=== PATIENT | female | born 1945 | race African-American/Black ===

== ENCOUNTER 2017-12-18 21:13 | Emergency (ER) | payer MEDICARE ==
[~2017-12-18] VITALS: Ht 144.8 cm; Wt 71.0 kg
[~2017-12-18 21:13] MED LIST: (None)10 MG OR; AMLODIPINE; AMLODIPINE5 MG PO; ANTIVERT25 MG PO; ASPIRIN LOW DOS81 M2 PO; CARAFATE; CARAFATE1 GM PO; CEFEPIME1 GM IV; CEPHALEXIN500 M1; CEPHALEXIN500 MG PO; CLOPIDOGREL75 MG PO; DIFLUCAN100 MG PO; DIOVAN160 MG PO; DIOVAN40 MG PO; DULCOLAX10 MG RE; FERROUS SULFAT325 MG PO; FLORASTOR250 M1 PO; FUROSEMIDE40 MG PO; GABAPENTIN300 MG PO; GLIPIZIDE ER5 MG PO; GLIPIZIDE5 M2 PO; GLIPIZIDE5 MG PO; GLUCOTROL5 MG PO; HEPARIN LOC IV; IBUPROFEN800 MG OR; IMDUR30 MG PO; IRON325 M1 PO; LASIX 20 MG20 MG/TAB PO; LEXAPRO20 MG PO; LIPITOR40 M1; LIPITOR40 MG PO; LORTAB 7.5 OR; LYRICA100 MG PO; MARINOL2.5 MG PO; MECLIZINE25 MG PO; METOCLOPRAM5 MG PO; MOTRIN200 MG PO; MULTI VIT PO; NAPROSYN375 MG OR; NEURONTIN300 MG PO; NITROGLYCRN TL; NITROSTAT0.4 MG SL; NORCO1 TA2 PO; NORVASC PO; NORVASC2.5 MG PO; NYSTATIN100000 M4 TOP; PEPCID20 MG PO; PLAVIX75 MG PO; PRILOSEC20 MG PO; PRILOSEC20 MG/CAP PO; PRO STAT PO; SILVADENE1 % TOP; TOPROL XL PO; TRAMADL/APAP PO; TRAMADOL HCL50 MG PO; TRAMADOL HYDROC50 MG PO; ULTRACET 37.5-31 TAB PO; VIIBRYD20 MG PO; ZESTRIL/PRIN5 MG/TA1 PO; [UNRECOGNIZED DRUG - CODE] TOP; [UNRECOGNIZED DRUG - OTHER]; [UNRECOGNIZED DRUG - OTHER] PO
[2017-12-18] MEDS ORDERED: METFORMIN500 M1 PO (21:31)
[2017-12-18] MEDS ORDERED: NAPROSYN500 MG PO (23:49)
[2017-12-19 00:07] VITALS: BP 158/83
== END 2017-12-19 00:07 | disposition home or self-care (01) ==
LOC: ED 21:13
PROC: 0HQ1XZZ Repair Face Skin, External Approach (ICD-10-PCS; principal; 2017-12-18)
DX: S09.90XA Unspecified injury of head, initial encounter (principal); S01.81XA Laceration without foreign body of other part of head, initial encounter; R22.0 Localized swelling, mass and lump, head; W01.0XXA Fall on same level from slipping, tripping and stumbling without subsequent striking against object, initial encounter; Y92.000 Kitchen of unspecified non-institutional (private) residence as the place of occurrence of the external cause

== ENCOUNTER 2018-05-18 10:19 | Emergency (ER) | payer MEDICARE ==
[~2018-05-18] VITALS: Ht 144.8 cm; Wt 100.0 kg
[~2018-05-18 10:19] MED LIST changes: +METFORMIN500 M1 PO; +NAPROSYN500 MG PO
[2018-05-18] MEDS ORDERED: NAPROSYN500 MG PO (11:16)
[2018-05-18 11:40] VITALS: BP 139/57
== END 2018-05-18 11:40 | disposition home or self-care (01) ==
LOC: ED 10:19
DX: M19.031 Primary osteoarthritis, right wrist (principal); M25.531 Pain in right wrist

== ENCOUNTER 2018-09-04 19:51 | Emergency (ER) | payer MEDICARE ==
[~2018-09-04] VITALS: Ht 144.8 cm; Wt 69.5 kg
[2018-09-04 21:17] VITALS: BP 153/65
[2018-09-04] MEDS ORDERED: AMOXICILLIN500 MG PO (21:28)
== END 2018-09-04 21:46 | disposition home or self-care (01) ==
LOC: ED 19:51
DX: I10 Essential (primary) hypertension (principal); J02.9 Acute pharyngitis, unspecified; E11.9 Type 2 diabetes mellitus without complications; I25.10 Atherosclerotic heart disease of native coronary artery without angina pectoris

== ENCOUNTER → 2018-09-07 | Outpatient (REF) | payer MEDICARE ==
[~2018-09-07] MED LIST changes: +AMOXICILLIN500 MG PO
== END | disposition home or self-care (01) ==
LOC: DI 13:43
PROVIDERS: ATTEND Internal Medicine Interventional Cardiology
DX: I73.9 Peripheral vascular disease, unspecified (principal)

== ENCOUNTER 2020-06-28 04:34 | Emergency (ER) | payer MEDICARE ==
[~2020-06-28] VITALS: Ht 144.8 cm; Wt 76.4 kg
[2020-06-28] MEDS ORDERED: XARELTO10 MG PO (05:01)
[2020-06-28] MEDS ORDERED: LOSARTAN POTASS50 MG PO (05:02)
[2020-06-28] MEDS ORDERED: JANUVIA50 MG PO (05:03)
[2020-06-28] MEDS ORDERED: OXYBUTYNIN CHLOR5 M1 PO (05:03)
[2020-06-28] MEDS ORDERED: VITAMIN D32000 UNI2 PO (05:04)
[2020-06-28 05:15] VITALS: BP 142/81
== END 2020-06-28 05:15 | disposition home or self-care (01) ==
LOC: ED 04:34
PROC: 09C37ZZ Extirpation of Matter from Right External Auditory Canal, Via Natural or Artificial Opening (ICD-10-PCS; principal; 2020-06-28)
DX: T16.1XXA Foreign body in right ear, initial encounter (principal); E11.9 Type 2 diabetes mellitus without complications; I10 Essential (primary) hypertension; I25.10 Atherosclerotic heart disease of native coronary artery without angina pectoris; X58.XXXA Exposure to other specified factors, initial encounter; Z98.84 Bariatric surgery status; Z95.1 Presence of aortocoronary bypass graft; Z95.5 Presence of coronary angioplasty implant and graft; Z79.84 Long term (current) use of oral hypoglycemic drugs

== ENCOUNTER 2020-07-03 12:33 | Emergency (ER) | payer MEDICARE ==
[~2020-07-03] VITALS: Ht 144.8 cm; Wt 76.0 kg
[~2020-07-03 12:33] MED LIST changes: +JANUVIA50 MG PO; +LOSARTAN POTASS50 MG PO; +OXYBUTYNIN CHLOR5 M1 PO; +VITAMIN D32000 UNI2 PO; +XARELTO10 MG PO
[2020-07-03] MEDS ORDERED: TRAMADOL HYDROC50 MG PO (14:35)
[2020-07-03] MEDS ORDERED: NITROSTAT0.4 MG SL (14:36)
[2020-07-03] MEDS ORDERED: ASPIRIN LOW DOS81 M1 PO (14:36)
[2020-07-03] MEDS ORDERED: FLOVENT DI50 MCG/BLI IN (14:37)
[2020-07-03] MEDS ORDERED: VOLTAREN1%GEL TOP (15:47)
[2020-07-03 16:15] VITALS: BP 144/80
== END 2020-07-03 16:15 | disposition short-term general hospital (02) ==
LOC: ED 12:33
DX: S09.90XA Unspecified injury of head, initial encounter (principal); M87.9 Osteonecrosis, unspecified; I10 Essential (primary) hypertension; E11.9 Type 2 diabetes mellitus without complications; I25.10 Atherosclerotic heart disease of native coronary artery without angina pectoris; W01.0XXA Fall on same level from slipping, tripping and stumbling without subsequent striking against object, initial encounter; Y92.009 Unspecified place in unspecified non-institutional (private) residence as the place of occurrence of the external cause; Z95.1 Presence of aortocoronary bypass graft; Z95.5 Presence of coronary angioplasty implant and graft; Z98.84 Bariatric surgery status; Z79.01 Long term (current) use of anticoagulants

== ENCOUNTER 2020-08-11 12:19 | Emergency (ER) | payer MEDICARE ==
[~2020-08-11] VITALS: Ht 144.8 cm; Wt 79.0 kg
[~2020-08-11 12:19] MED LIST changes: +ASPIRIN LOW DOS81 M1 PO; +FLOVENT DI50 MCG/BLI IN; +VOLTAREN1%GEL TOP
[2020-08-11 13:36] LABS: HEMOGLOBIN 10.8 g/dl (12.0-16.0); IMMATURE GRANULOCYTES 0.3 % (0.0-5.0); MEAN CELL VOLUME 99.7 fL CALC (80.0-100.0); MEAN CORPUSCULAR HGB 29.1 pG CALC (26.0-32.0); MEAN CORPUSCULAR HGB CONC 29.2 g/dL CAL (32.0-36.0); NEUT# 1.96 thou/uL (2.00-7.15); RED BLOOD COUNT 3.71 mill/uL (4.20-5.60); RED CELL DISTRI WIDTH 15.7 % (11.5-15.5)
[2020-08-11 13:57] LABS: ALBUMIN 3.8 g/dL (3.2-5.0); BILIRUBIN, TOTAL 0.4 mg/dL (0.0-1.4); CREATININE 1.3 mg/dL (0.5-1.0); POTASSIUM 4.4 mmol/l (3.5-5.1); TOTAL PROTEIN 6.9 g/dL (6.3-8.2)
[2020-08-11 14:07] LABS: URINE BILIRUBIN - DIPSTICK NEGATIVE (NEGATIVE); URINE BLOOD DIPSTICK NEGATIVE (NEGATIVE); URINE COLOR YELLOW; URINE GLUCOSE - DIPSTICK NEGATIVE (NEGATIVE); URINE KETONE NEGATIVE (NEGATIVE); URINE LEUK ESTERASE TRACE (NEGATIVE); URINE NITRITE - DIPSTICK NEGATIVE (Negative); URINE PH 5.5 (4.5-8.0); URINE PROTEIN - DIPSTICK 30 mg/dL (NEG-TRACE); URINE SPECIFIC GRAVITY >=1.030
[2020-08-11 14:14] LABS: URINE SQUAMOUS EPITHELIAL CELL MODERATE EPI/hpf (0-FEW)
[2020-08-11 17:05] VITALS: BP 155/65
== END 2020-08-11 17:06 | disposition home or self-care (01) ==
LOC: ED 12:19
DX: R42 Dizziness and giddiness (principal); E11.9 Type 2 diabetes mellitus without complications; I10 Essential (primary) hypertension; I25.10 Atherosclerotic heart disease of native coronary artery without angina pectoris; Z86.718 Personal history of other venous thrombosis and embolism

== ENCOUNTER 2020-08-16 15:35 | Observation (INO) | payer MEDICARE ==
[~2020-08-16] VITALS: Ht 144.8 cm; Wt 74.5 kg
[2020-08-16 17:51] LABS: HEMOGLOBIN 11.7 g/dl (12.0-16.0); IMMATURE GRANULOCYTES 1.3 % (0.0-5.0); MEAN CELL VOLUME 99.5 fL CALC (80.0-100.0); MEAN CORPUSCULAR HGB 29.1 pG CALC (26.0-32.0); MEAN CORPUSCULAR HGB CONC 29.3 g/dL CAL (32.0-36.0); NEUT# 2.62 thou/uL (2.00-7.15); RED BLOOD COUNT 4.02 mill/uL (4.20-5.60); RED CELL DISTRI WIDTH 15.9 % (11.5-15.5)
[2020-08-16 18:38] LABS: ALBUMIN 3.8 g/dL (3.2-5.0); BILIRUBIN, TOTAL 0.5 mg/dL (0.0-1.4); CREATININE 1.6 mg/dL (0.5-1.0); POTASSIUM 4.8 mmol/l (3.5-5.1); TOTAL PROTEIN 6.9 g/dL (6.3-8.2)
[2020-08-17] VITALS (7 sets, daily range): BP systolic 149–199; BP diastolic 60–76
[2020-08-17 06:01] LABS: HEMATOCRIT 37.7 % (37.0-47.0); HEMOGLOBIN 11.2 g/dl (12.0-16.0); IMMATURE GRANULOCYTES 0.8 % (0.0-5.0); MEAN CELL VOLUME 99.2 fL CALC (80.0-100.0); MEAN CORPUSCULAR HGB 29.5 pG CALC (26.0-32.0); MEAN CORPUSCULAR HGB CONC 29.7 g/dL CAL (32.0-36.0); NEUT# 2.78 thou/uL (2.00-7.15); RED BLOOD COUNT 3.8 mill/uL (4.20-5.60); RED CELL DISTRI WIDTH 15.8 % (11.5-15.5)
[2020-08-17 06:32] LABS: C-REACTIVE PROTEIN 6.6 mg/dL (0-0.9); CREATININE 1.3 mg/dL (0.5-1.0); POTASSIUM 5.1 mmol/l (3.5-5.1)
[2020-08-18] VITALS (8 sets, daily range): BP systolic 136–198; BP diastolic 58–88
[2020-08-18 06:07] LABS: HEMATOCRIT 34.5 % (37.0-47.0); HEMOGLOBIN 10.3 g/dl (12.0-16.0); MEAN CELL VOLUME 98.6 fL CALC (80.0-100.0); MEAN CORPUSCULAR HGB 29.4 pG CALC (26.0-32.0); MEAN CORPUSCULAR HGB CONC 29.9 g/dL CAL (32.0-36.0); NEUT# 2.8 thou/uL (2.00-7.15); RED BLOOD COUNT 3.5 mill/uL (4.20-5.60); RED CELL DISTRI WIDTH 15.9 % (11.5-15.5)
[2020-08-18 06:22] LABS: CREATININE 1.2 mg/dL (0.5-1.0); POTASSIUM 4.5 mmol/l (3.5-5.1)
[2020-08-19] VITALS (11 sets, daily range): BP systolic 144–256; BP diastolic 56–102
[2020-08-20] VITALS (8 sets, daily range): BP systolic 166–192; BP diastolic 64–88
[2020-08-20 08:52] LABS: HEMATOCRIT 39.3 % (37.0-47.0); HEMOGLOBIN 11.8 g/dl (12.0-16.0); IMMATURE GRANULOCYTES 1.6 % (0.0-5.0); MEAN CELL VOLUME 96.8 fL CALC (80.0-100.0); MEAN CORPUSCULAR HGB 29.1 pG CALC (26.0-32.0); NEUT# 7.27 thou/uL (2.00-7.15); RED BLOOD COUNT 4.06 mill/uL (4.20-5.60); RED CELL DISTRI WIDTH 15.9 % (11.5-15.5)
[2020-08-20 09:16] LABS: ALBUMIN 3.1 g/dL (3.2-5.0); ALKALINE PHOSPHATASE 91 u/l (38-126); ANION GAP 12 (6-22 (CALC)); BILIRUBIN, TOTAL 0.3 mg/dL (0.0-1.4); BUN 23 mg/dL (8-23); BUN/CREATININE RATIO 23 (12-20 (CALC)); CARBON DIOXIDE 20 mmol/l (22-30); CHLORIDE 112 mmol/l (95-108); GFR 54 ML/MIN (>=60 (CALC)); GFR FOR AFR.AMER. > 60 ML/MIN (>=60 (CALC)); POTASSIUM 4.8 mmol/l (3.5-5.1); SGOT/AST 31 u/l (9-36); SODIUM 140 mmol/l (137-146)
[2020-08-21] VITALS (8 sets, daily range): BP systolic 159–196; BP diastolic 72–89
[2020-08-21 08:18] LABS: HEMATOCRIT 36.9 % (37.0-47.0); HEMOGLOBIN 11.3 g/dl (12.0-16.0); IMMATURE GRANULOCYTES 2.6 % (0.0-5.0); MEAN CELL VOLUME 95.8 fL CALC (80.0-100.0); MEAN CORPUSCULAR HGB 29.4 pG CALC (26.0-32.0); MEAN CORPUSCULAR HGB CONC 30.6 g/dL CAL (32.0-36.0); NEUT# 8.97 thou/uL (2.00-7.15); RED BLOOD COUNT 3.85 mill/uL (4.20-5.60); RED CELL DISTRI WIDTH 15.8 % (11.5-15.5)
[2020-08-21 08:42] LABS: ALBUMIN 2.8 g/dL (3.2-5.0); ALKALINE PHOSPHATASE 82 u/l (38-126); ANION GAP 11 (6-22 (CALC)); BILIRUBIN, TOTAL 0.4 mg/dL (0.0-1.4); BUN 20 mg/dL (8-23); BUN/CREATININE RATIO 23 (12-20 (CALC)); CARBON DIOXIDE 21 mmol/l (22-30); CHLORIDE 112 mmol/l (95-108); CREATININE 0.9 mg/dL (0.5-1.0); GFR > 60 ML/MIN (>=60 (CALC)); GFR FOR AFR.AMER. > 60 ML/MIN (>=60 (CALC)); POTASSIUM 4.9 mmol/l (3.5-5.1); SGOT/AST 31 u/l (9-36); SODIUM 139 mmol/l (137-146); TOTAL PROTEIN 5.8 g/dL (6.3-8.2)
[2020-08-22] VITALS (8 sets, daily range): BP systolic 143–177; BP diastolic 68–97
[2020-08-22 08:49] LABS: HEMATOCRIT 38.2 % (37.0-47.0); HEMOGLOBIN 11.8 g/dl (12.0-16.0); IMMATURE GRANULOCYTES 2.5 % (0.0-5.0); MEAN CELL VOLUME 94.6 fL CALC (80.0-100.0); MEAN CORPUSCULAR HGB 29.2 pG CALC (26.0-32.0); MEAN CORPUSCULAR HGB CONC 30.9 g/dL CAL (32.0-36.0); NEUT# 10.66 thou/uL (2.00-7.15); RED BLOOD COUNT 4.04 mill/uL (4.20-5.60); RED CELL DISTRI WIDTH 15.4 % (11.5-15.5)
[2020-08-22 09:17] LABS: ALBUMIN 2.9 g/dL (3.2-5.0); ALKALINE PHOSPHATASE 85 u/l (38-126); BILIRUBIN, TOTAL 0.4 mg/dL (0.0-1.4); BUN 23 mg/dL (8-23); BUN/CREATININE RATIO 25 (12-20 (CALC)); CARBON DIOXIDE 25 mmol/l (22-30); CHLORIDE 107 mmol/l (95-108); CREATININE 0.9 mg/dL (0.5-1.0); GFR > 60 ML/MIN (>=60 (CALC)); GFR FOR AFR.AMER. > 60 ML/MIN (>=60 (CALC)); SGOT/AST 28 u/l (9-36); SODIUM 138 mmol/l (137-146)
[2020-08-22 09:25] LABS: ANION GAP 12 (6-22 (CALC)); POTASSIUM 5.5 mmol/l (3.5-5.1)
[2020-08-22 09:45] LABS: C-REACTIVE PROTEIN 15.8 mg/dL (0-0.9)
[2020-08-23 03:45] VITALS: BP 178/95
[2020-08-23 05:27] LABS: HEMATOCRIT 39.5 % (37.0-47.0); MEAN CELL VOLUME 95.6 fL CALC (80.0-100.0); MEAN CORPUSCULAR HGB 29.1 pG CALC (26.0-32.0); MEAN CORPUSCULAR HGB CONC 30.4 g/dL CAL (32.0-36.0); RED BLOOD COUNT 4.13 mill/uL (4.20-5.60); RED CELL DISTRI WIDTH 15.4 % (11.5-15.5)
[2020-08-23 05:47] LABS: BUN 30 mg/dL (8-23); BUN/CREATININE RATIO 32 (12-20 (CALC)); CARBON DIOXIDE 25 mmol/l (22-30); CHLORIDE 106 mmol/l (95-108); CREATININE 0.9 mg/dL (0.5-1.0); GFR > 60 ML/MIN (>=60 (CALC)); GFR FOR AFR.AMER. > 60 ML/MIN (>=60 (CALC)); SODIUM 136 mmol/l (137-146)
[2020-08-23 05:48] LABS: ANION GAP 11 (6-22 (CALC)); MAGNESIUM 2.9 mg/dL (1.6-2.3); POTASSIUM 5.6 mmol/l (3.5-5.1)
[2020-08-23 08:00] VITALS: BP 170/82
[2020-08-23 12:34] VITALS: BP 149/54
[2020-08-23 14:45] VITALS: BP 163/70
[2020-08-23 19:50] VITALS: BP 126/53; BP 159/75
[2020-08-24] VITALS (7 sets, daily range): BP systolic 101–157; BP diastolic 52–89
[2020-08-24 04:55] LABS: HEMATOCRIT 34.3 % (37.0-47.0); HEMOGLOBIN 10.5 g/dl (12.0-16.0); IMMATURE GRANULOCYTES 2.1 % (0.0-5.0); MEAN CELL VOLUME 95.8 fL CALC (80.0-100.0); MEAN CORPUSCULAR HGB 29.3 pG CALC (26.0-32.0); MEAN CORPUSCULAR HGB CONC 30.6 g/dL CAL (32.0-36.0); NEUT# 8.55 thou/uL (2.00-7.15); RED BLOOD COUNT 3.58 mill/uL (4.20-5.60); RED CELL DISTRI WIDTH 15.2 % (11.5-15.5)
[2020-08-24 05:32] LABS: ALBUMIN 2.6 g/dL (3.2-5.0); BILIRUBIN, TOTAL 0.3 mg/dL (0.0-1.4); C-REACTIVE PROTEIN 3.3 mg/dL (0-0.9); CREATININE 1.2 mg/dL (0.5-1.0); POTASSIUM 4.8 mmol/l (3.5-5.1); TOTAL PROTEIN 5.4 g/dL (6.3-8.2)
[2020-08-25] VITALS (7 sets, daily range): BP systolic 152–177; BP diastolic 57–71
[2020-08-25 05:38] LABS: IMMATURE GRANULOCYTES 2.9 % (0.0-5.0); MEAN CELL VOLUME 97.6 fL CALC (80.0-100.0); MEAN CORPUSCULAR HGB CONC 29.7 g/dL CAL (32.0-36.0); NEUT# 8.59 thou/uL (2.00-7.15); RED BLOOD COUNT 3.79 mill/uL (4.20-5.60)
[2020-08-25 05:52] LABS: ALBUMIN 2.8 g/dL (3.2-5.0); ALKALINE PHOSPHATASE 81 u/l (38-126); ANION GAP 7 (6-22 (CALC)); BILIRUBIN, TOTAL 0.4 mg/dL (0.0-1.4); BUN 39 mg/dL (8-23); BUN/CREATININE RATIO 40 (12-20 (CALC)); CHLORIDE 104 mmol/l (95-108); GFR 54 ML/MIN (>=60 (CALC)); GFR FOR AFR.AMER. > 60 ML/MIN (>=60 (CALC)); POTASSIUM 5.1 mmol/l (3.5-5.1); SGOT/AST 24 u/l (9-36); SODIUM 138 mmol/l (137-146); TOTAL PROTEIN 5.6 g/dL (6.3-8.2)
[2020-08-25 05:53] LABS: CARBON DIOXIDE 32 mmol/l (22-30)
[2020-08-26] VITALS (7 sets, daily range): BP systolic 118–177; BP diastolic 43–81
[2020-08-26 08:50] LABS: BUN 36 mg/dL (8-23); BUN/CREATININE RATIO 40 (12-20 (CALC)); CARBON DIOXIDE 30 mmol/l (22-30); CHLORIDE 106 mmol/l (95-108); CREATININE 0.9 mg/dL (0.5-1.0); GFR > 60 ML/MIN (>=60 (CALC)); GFR FOR AFR.AMER. > 60 ML/MIN (>=60 (CALC)); SODIUM 137 mmol/l (137-146)
[2020-08-26 09:27] LABS: ANION GAP 7 (6-22 (CALC)); POTASSIUM 5.5 mmol/l (3.5-5.1)
[2020-08-26] MEDS ORDERED: APRESOLINE25 MG/TAB PO (15:04)
[2020-08-26] MEDS ORDERED: AMLODIPINE BESYL5 MG PO (15:05)
[2020-08-26] MEDS ORDERED: LOPRESSOR 550 MG/TAB PO (15:05)
[2020-08-27] VITALS: BP 173/63
[2020-08-27 01:21] VITALS: BP 169/76
[2020-08-27 04:00] VITALS: BP 142/60
[2020-08-27 08:02] VITALS: BP 138/63
[2020-08-27 09:24] LABS: HEMATOCRIT 36.9 % (37.0-47.0); HEMOGLOBIN 10.9 g/dl (12.0-16.0); MEAN CELL VOLUME 97.6 fL CALC (80.0-100.0); MEAN CORPUSCULAR HGB 28.8 pG CALC (26.0-32.0); MEAN CORPUSCULAR HGB CONC 29.5 g/dL CAL (32.0-36.0); RED BLOOD COUNT 3.78 mill/uL (4.20-5.60); RED CELL DISTRI WIDTH 14.8 % (11.5-15.5)
[2020-08-27 09:39] LABS: ANION GAP 5 (6-22 (CALC)); BUN 34 mg/dL (8-23); BUN/CREATININE RATIO 36 (12-20 (CALC)); CARBON DIOXIDE 34 mmol/l (22-30); CHLORIDE 103 mmol/l (95-108); CREATININE 0.9 mg/dL (0.5-1.0); GFR > 60 ML/MIN (>=60 (CALC)); GFR FOR AFR.AMER. > 60 ML/MIN (>=60 (CALC)); MAGNESIUM 2.8 mg/dL (1.6-2.3); POTASSIUM 5.1 mmol/l (3.5-5.1); SODIUM 137 mmol/l (137-146)
[2020-08-27 11:11] VITALS: BP 163/65
[2020-08-27 15:25] VITALS: BP 163/65
== END 2020-08-27 16:20 | disposition home health service (06) ==
LOC: ED 15:35 → ED-I 22:11 → ED 22:34 → MS2 22:35 → ED-I 22:35 → MS2 08-17 08:58
PROVIDERS: Family Medicine; Internal Medicine; Nurse Practitioner; Physician Assistant; ADMIT Internal Medicine; ATTEND Internal Medicine
DX: U07.1 COVID-19 (principal); J12.82 Pneumonia due to coronavirus disease 2019; G93.41 Metabolic encephalopathy; N17.9 Acute kidney failure, unspecified; I16.0 Hypertensive urgency; I12.9 Hypertensive chronic kidney disease with stage 1 through stage 4 chronic kidney disease, or unspecified chronic kidney disease; E11.22 Type 2 diabetes mellitus with diabetic chronic kidney disease; N18.4 Chronic kidney disease, stage 4 (severe); E87.5 Hyperkalemia; I25.10 Atherosclerotic heart disease of native coronary artery without angina pectoris; K59.00 Constipation, unspecified; I48.91 Unspecified atrial fibrillation; K57.30 Diverticulosis of large intestine without perforation or abscess without bleeding; M79.662 Pain in left lower leg; M79.661 Pain in right lower leg; M25.552 Pain in left hip; M25.551 Pain in right hip; R55 Syncope and collapse; R53.1 Weakness; R53.83 Other fatigue; Z79.01 Long term (current) use of anticoagulants; Z98.84 Bariatric surgery status; Z86.718 Personal history of other venous thrombosis and embolism; Z87.11 Personal history of peptic ulcer disease; Z95.5 Presence of coronary angioplasty implant and graft; Z79.84 Long term (current) use of oral hypoglycemic drugs
CPT/HCPCS: Q9967

== ENCOUNTER 2021-01-31 12:33 | Emergency (ER) | payer MEDICARE ==
[~2021-01-31] VITALS: Ht 144.8 cm; Wt 73.0 kg
[~2021-01-31 12:33] MED LIST changes: +AMLODIPINE BESYL5 MG PO; +APRESOLINE25 MG/TAB PO; +LOPRESSOR 550 MG/TAB PO
[2021-01-31] MEDS ORDERED: NEO/POLY/BA1 TOP (13:04)
[2021-01-31 13:29] VITALS: BP 101/41
== END 2021-01-31 13:36 | disposition home or self-care (01) ==
LOC: ED 12:33
DX: R23.8 Other skin changes (principal); E11.9 Type 2 diabetes mellitus without complications; I10 Essential (primary) hypertension; I25.10 Atherosclerotic heart disease of native coronary artery without angina pectoris; Z86.718 Personal history of other venous thrombosis and embolism; Z95.1 Presence of aortocoronary bypass graft; Z95.5 Presence of coronary angioplasty implant and graft; Z98.84 Bariatric surgery status

== ENCOUNTER 2021-02-24 19:16 | Inpatient (IN) | payer MEDICARE ==
[~2021-02-24] VITALS: Ht 144.8 cm; Wt 75.1 kg
[~2021-02-24 19:16] MED LIST changes: +NEO/POLY/BA1 TOP
[2021-02-24 20:24] LABS: HEMATOCRIT 36.6 % (37.0-47.0); HEMOGLOBIN 10.7 g/dl (12.0-16.0); IMMATURE GRANULOCYTES 0.2 % (0.0-5.0); MEAN CELL VOLUME 90.1 fL CALC (80.0-100.0); MEAN CORPUSCULAR HGB 26.4 pG CALC (26.0-32.0); MEAN CORPUSCULAR HGB CONC 29.2 g/dL CAL (32.0-36.0); NEUT# 3.26 thou/uL (2.00-7.15); RED BLOOD COUNT 4.06 mill/uL (4.20-5.60); RED CELL DISTRI WIDTH 14.8 % (11.5-15.5)
[2021-02-24 20:41] LABS: ALBUMIN 3.8 g/dL (3.2-5.0); BILIRUBIN, TOTAL 0.2 mg/dL (0.0-1.4); CREATININE 3.2 mg/dL (0.5-1.0); POTASSIUM 4.6 mmol/l (3.5-5.1); TOTAL PROTEIN 6.9 g/dL (6.3-8.2)
[2021-02-25 00:04] VITALS: BP 158/65
[2021-02-25 04:00] VITALS: BP 131/58
[2021-02-25 07:31] VITALS: BP 140/66
[2021-02-25] MEDS ORDERED: NORVASC5 M1 PO (10:35)
[2021-02-25] MEDS ORDERED: FUROSEMIDE20 MG PO (10:39)
[2021-02-25] MEDS ORDERED: GABAPENTIN300 M2 PO (10:42)
[2021-02-25] MEDS ORDERED: HYDRALAZINE HYD25 MG PO (10:43)
[2021-02-25] MEDS ORDERED: COZAAR100 MG PO (10:44)
[2021-02-25] MEDS ORDERED: MECLIZINE12.5 M1 PO (10:45)
[2021-02-25] MEDS ORDERED: LOPRESSOR50 M1 PO (10:46)
[2021-02-25] MEDS ORDERED: ONE TOUCH ULTRA 50 ×2 (10:49→10:51)
[2021-02-25] MEDS ORDERED: OXYBUTYNIN CHLOR5 M1 PO (10:52)
[2021-02-25] MEDS ORDERED: LYRICA75 MG PO ×2 (10:53→11:08)
[2021-02-25] MEDS ORDERED: SILVER SULFA1 % EX (10:54)
[2021-02-25] MEDS ORDERED: [UNRECOGNIZED DRUG - CODE] PO (10:56)
[2021-02-25] MEDS ORDERED: XARELTO2.5 MG PO (10:57)
[2021-02-25] MEDS ORDERED: HYDROCO/APAP1 TA9 PO (11:12)
[2021-02-25 11:28] VITALS: BP 147/56
[2021-02-25 12:59] LABS: URINE BILIRUBIN - DIPSTICK NEGATIVE (NEGATIVE); URINE BLOOD DIPSTICK TRACE-INTACT (NEGATIVE); URINE GLUCOSE - DIPSTICK NEGATIVE (NEGATIVE); URINE KETONE NEGATIVE (NEGATIVE); URINE LEUK ESTERASE SMALL (Negative); URINE NITRITE - DIPSTICK NEGATIVE (Negative); URINE PROTEIN - DIPSTICK NEGATIVE (NEG-TRACE); URINE UROBILINOGEN - DIPSTICK 0.2 E.U./dL (0.2)
[2021-02-25 13:03] LABS: URINE CLARITY SL CLOUDY; URINE COLOR STRAW
[2021-02-25 13:04] LABS: URINE EPITHELIAL CELLS FEW EPI/hpf (0-FEW); URINE RBC 0-2 RBC/hpf (0-5); URINE WBC 0-2 WBC/hpf (0-5)
[2021-02-25 13:26] LABS: CREATININE 2.4 mg/dL (0.5-1.0); POTASSIUM 4.6 mmol/l (3.5-5.1)
[2021-02-25 15:00] VITALS: BP 152/62
[2021-02-25 18:55] VITALS: BP 148/62
[2021-02-26] VITALS: BP 144/60
[2021-02-26 04:25] VITALS: BP 147/62
[2021-02-26 05:48] LABS: HEMATOCRIT 30.9 % (37.0-47.0); HEMOGLOBIN 9.2 g/dl (12.0-16.0); MEAN CELL VOLUME 90.6 fL CALC (80.0-100.0); MEAN CORPUSCULAR HGB CONC 29.8 g/dL CAL (32.0-36.0); RED BLOOD COUNT 3.41 mill/uL (4.20-5.60); RED CELL DISTRI WIDTH 14.7 % (11.5-15.5)
[2021-02-26 05:58] LABS: CREATININE 2.2 mg/dL (0.5-1.0); POTASSIUM 4.5 mmol/l (3.5-5.1)
[2021-02-26 06:00] LABS: ALBUMIN 2.8 g/dL (3.2-5.0); MAGNESIUM 1.6 mg/dL (1.6-2.3)
[2021-02-26 07:02] VITALS: BP 139/59
[2021-02-26 11:45] VITALS: BP 147/63
[2021-02-26 17:15] VITALS: BP 152/64
[2021-02-26 19:00] VITALS: BP 153/66
[2021-02-27 00:17] VITALS: BP 147/65
[2021-02-27 05:20] VITALS: BP 160/64
[2021-02-27 05:20] LABS: HEMATOCRIT 32.8 % (37.0-47.0); HEMOGLOBIN 9.7 g/dl (12.0-16.0); MEAN CELL VOLUME 91.4 fL CALC (80.0-100.0); MEAN CORPUSCULAR HGB CONC 29.6 g/dL CAL (32.0-36.0); RED BLOOD COUNT 3.59 mill/uL (4.20-5.60); RED CELL DISTRI WIDTH 14.6 % (11.5-15.5)
[2021-02-27 05:26] LABS: POTASSIUM 4.5 mmol/l (3.5-5.1)
[2021-02-27 06:21] VITALS: BP 140/66
[2021-02-27 08:30] VITALS: BP 142/37
[2021-02-27] MEDS ORDERED: NORVASC5 M1 PO (10:44)
[2021-02-27 11:00] VITALS: BP 160/66
[2021-02-27] MEDS ORDERED: SANTYL250 UNIT/G TOP (11:17)
== END 2021-02-27 13:18 | disposition home health service (06) | DRG 683 ==
LOC: ED 19:16 → ED-I 22:15 → ED 22:36 → MS2 22:37
PROVIDERS: Emergency Medicine; Internal Medicine Nephrology; Nurse Practitioner; ADMIT Hospitalist; ATTEND Hospitalist
PROC: 0T9B70Z Drainage of Bladder with Drainage Device, Via Natural or Artificial Opening (ICD-10-PCS; principal; 2021-02-24)
DX: N17.0 Acute kidney failure with tubular necrosis (principal); E87.2 Acidosis; E11.622 Type 2 diabetes mellitus with other skin ulcer; L98.499 Non-pressure chronic ulcer of skin of other sites with unspecified severity; E11.22 Type 2 diabetes mellitus with diabetic chronic kidney disease; I12.9 Hypertensive chronic kidney disease with stage 1 through stage 4 chronic kidney disease, or unspecified chronic kidney disease; N18.9 Chronic kidney disease, unspecified; K43.9 Ventral hernia without obstruction or gangrene; I25.10 Atherosclerotic heart disease of native coronary artery without angina pectoris; E86.9 Volume depletion, unspecified; D64.9 Anemia, unspecified; M19.012 Primary osteoarthritis, left shoulder; R33.9 Retention of urine, unspecified; Z87.11 Personal history of peptic ulcer disease; Z86.718 Personal history of other venous thrombosis and embolism; Z95.1 Presence of aortocoronary bypass graft; Z95.5 Presence of coronary angioplasty implant and graft; Z98.84 Bariatric surgery status; Z20.822 Contact with and (suspected) exposure to COVID-19

== ENCOUNTER 2021-11-23 11:24 | Emergency (ER) | payer MEDICARE ==
[2021-11-23] VITALS (7 sets, daily range): BP systolic 106–142; BP diastolic 45–67
[~2021-11-23] VITALS: Ht 144.8 cm; Wt 65.0 kg
[~2021-11-23 11:24] MED LIST changes: +COZAAR100 MG PO; +FUROSEMIDE20 MG PO; +GABAPENTIN300 M2 PO; +HYDRALAZINE HYD25 MG PO; +HYDROCO/APAP1 TA9 PO; +LOPRESSOR50 M1 PO; +LYRICA75 MG PO; +MECLIZINE12.5 M1 PO; +NORVASC5 M1 PO; +ONE TOUCH ULTRA 50; +SANTYL250 UNIT/G TOP; +SILVER SULFA1 % EX; +XARELTO2.5 MG PO; +[UNRECOGNIZED DRUG - CODE] PO
[2021-11-23 13:27] LABS: HEMATOCRIT 31.5 % (37.0-47.0); HEMOGLOBIN 9.3 g/dl (12.0-16.0); IMMATURE GRANULOCYTES 0.1 % (0.0-5.0); MEAN CELL VOLUME 92.1 fL CALC (80.0-100.0); MEAN CORPUSCULAR HGB 27.2 pG CALC (26.0-32.0); MEAN CORPUSCULAR HGB CONC 29.5 g/dL CAL (32.0-36.0); NEUT# 5.59 thou/uL (2.00-7.15); RED BLOOD COUNT 3.42 mill/uL (4.20-5.60); RED CELL DISTRI WIDTH 15.1 % (11.5-15.5)
[2021-11-23 13:28] LABS: URINE BILIRUBIN - DIPSTICK NEGATIVE (NEGATIVE); URINE BLOOD DIPSTICK NEGATIVE (NEGATIVE); URINE COLOR YELLOW; URINE GLUCOSE - DIPSTICK NEGATIVE (NEGATIVE); URINE KETONE NEGATIVE (NEGATIVE); URINE LEUK ESTERASE NEGATIVE (NEGATIVE); URINE PH 5.5 (4.5-8.0); URINE PROTEIN - DIPSTICK NEGATIVE (NEG-TRACE); URINE SPECIFIC GRAVITY 1.015; URINE UROBILINOGEN - DIPSTICK 0.2 E.U./dL (0.2)
[2021-11-23 13:30] LABS: URINE NITRITE - DIPSTICK NEGATIVE (Negative)
[2021-11-23 13:32] LABS: ALBUMIN 3.1 g/dL (3.2-5.0); CREATININE 2.7 mg/dL (0.5-1.0); POTASSIUM 4.2 mmol/l (3.5-5.1); TOTAL PROTEIN 6.3 g/dL (6.3-8.2)
[2021-11-23 13:42] LABS: BILIRUBIN, TOTAL 0.3 mg/dL (0.0-1.4)
== END 2021-11-23 14:34 | disposition home or self-care (01) ==
LOC: ED 11:24
PROVIDERS: Family Medicine
DX: M25.512 Pain in left shoulder (principal); I10 Essential (primary) hypertension; E11.9 Type 2 diabetes mellitus without complications; I25.10 Atherosclerotic heart disease of native coronary artery without angina pectoris; W18.39XA Other fall on same level, initial encounter; Y92.003 Bedroom of unspecified non-institutional (private) residence as the place of occurrence of the external cause; Z98.84 Bariatric surgery status; Z95.5 Presence of coronary angioplasty implant and graft; Z86.718 Personal history of other venous thrombosis and embolism; Z95.1 Presence of aortocoronary bypass graft

== ENCOUNTER 2021-12-05 16:07 | Inpatient (IN) | payer MEDICARE ==
[2021-12-05] VITALS (15 sets, daily range): BP systolic 67–150; BP diastolic 14–79
[~2021-12-05] VITALS: Ht 144.8 cm; Wt 60.0 kg
--- NOTE | 2021-12-05 16:40 | NUR ---
PATIENT ROOMED VIA WHEELCHAIR. CONNECTED TO MONITOR AND PROVIDER NOTIFIED OF PATIENT STATUS.
[2021-12-05 17:08] LABS: HEMATOCRIT 30.6 % (37.0-47.0); HEMOGLOBIN 9.2 g/dl (12.0-16.0); IMMATURE GRANULOCYTES 0.5 % (0.0-5.0); MEAN CELL VOLUME 91.1 fL CALC (80.0-100.0); MEAN CORPUSCULAR HGB 27.4 pG CALC (26.0-32.0); MEAN CORPUSCULAR HGB CONC 30.1 g/dL CAL (32.0-36.0); NEUT# 4.37 thou/uL (2.00-7.15); RED BLOOD COUNT 3.36 mill/uL (4.20-5.60); RED CELL DISTRI WIDTH 15.6 % (11.5-15.5)
--- NOTE | 2021-12-05 17:24 | NUR ---
PT WAS HYPOTENSIVE, TRENDELENDURG POSITION IMPLEMENTED, IT APPLICATION DEVELOPMENT MANAGER CONTINUOUS AND BP CYCLING Q 5MINS. PT AOX3 AND INFUSING LR AT A BOLUS RATE
[2021-12-05 17:27] LABS: ALBUMIN 2.9 g/dL (3.2-5.0); BILIRUBIN, TOTAL 0.4 mg/dL (0.0-1.4); POTASSIUM 4.2 mmol/l (3.5-5.1); TOTAL PROTEIN 6.1 g/dL (6.3-8.2)
[2021-12-05 17:33] LABS: URINE BILIRUBIN - DIPSTICK NEGATIVE (NEGATIVE); URINE BLOOD DIPSTICK NEGATIVE (NEGATIVE); URINE COLOR YELLOW; URINE GLUCOSE - DIPSTICK NEGATIVE (NEGATIVE); URINE KETONE NEGATIVE (NEGATIVE); URINE LEUK ESTERASE SMALL (NEGATIVE); URINE NITRITE - DIPSTICK NEGATIVE (Negative); URINE PROTEIN - DIPSTICK NEGATIVE (NEG-TRACE); URINE SPECIFIC GRAVITY 1.025; URINE UROBILINOGEN - DIPSTICK 0.2 E.U./dL (0.2)
[2021-12-05 17:40] LABS: URINE SQUAMOUS EPITHELIAL CELL MODERATE EPI/hpf (0-FEW)
--- NOTE | 2021-12-05 18:15 | NUR ---
PT SLEEPING ON CARDIAC MONITORING, NO COMPLAINTS
--- NOTE | 2021-12-05 19:56 | NUR ---
PT IN ROOM SPEAKING ON PHONE. NO CONCERNS
--- NOTE | 2021-12-05 20:45 | NUR ---
received report from Cristina GUZMAN from ER
--- NOTE | 2021-12-05 21:00 | NUR ---
PT TRANSPORTED TO FLOOR, REPORT GIVEN TO LISSETH RN, PT BELONGINGS SENT WITH PT, VSS WITH NO COMPLAINTS
--- NOTE | 2021-12-05 21:03 | NUR ---
patient arrived to floor via stretcher. pt is alert and orientated. patient oriented to the room, tv, call light and fall precautions. Bed in low position and bed alarm on
[2021-12-06] VITALS (128 sets, daily range): BP systolic 66–152; BP diastolic 19–69
--- NOTE | 2021-12-06 01:11 | NUR ---
Pt vitals were taken which showed a machine reading bp of 83/19 and temporal temp of 96F. Justin Bp taken and pt BP was 84/22 and oral temp 95.8F. Pt assessed and no change in mentation. Pt just states "I'm cold". Placed call to Dr Resendiz. Received order for 500cc bolus fluid, bear hugger and to increase IVF rate from 80cc to 125cc. MD aware of patient BNP level, hx of CHF and renal hx.
--- NOTE | 2021-12-06 02:40 | NUR ---
Pt evi BP after 500cc bolus is 80/28. Patient denies any chest pain or discomfort. Pt is A0x3. Placed call to Dr Resendiz. Recevied orders to transfer pt to ICU and placed on a levo drip. Informed drying supervisor.
--- NOTE | 2021-12-06 03:10 | NUR ---
Gave report to Nuzhat GUZMAN
--- NOTE | 2021-12-06 04:58 | NUR ---
Patient resting quietly at this time with eyes closed, respirations even and unlabored, no c/o pain or discomfort, no s/s of distress noted.
[2021-12-06 05:30] LABS: HEMATOCRIT 28.8 % (37.0-47.0); HEMOGLOBIN 8.8 g/dl (12.0-16.0); MEAN CELL VOLUME 91.4 fL CALC (80.0-100.0); MEAN CORPUSCULAR HGB 27.9 pG CALC (26.0-32.0); MEAN CORPUSCULAR HGB CONC 30.6 g/dL CAL (32.0-36.0); RED BLOOD COUNT 3.15 mill/uL (4.20-5.60); RED CELL DISTRI WIDTH 15.6 % (11.5-15.5)
--- NOTE | 2021-12-06 05:33 | NUR ---
Reynolds catheter inserted for patient urine retention, reynolds in placed to document output for patient, initial output after insertion 250cc clear yellow urine.
[2021-12-06 05:48] LABS: CREATININE 3.2 mg/dL (0.5-1.0); MAGNESIUM 1.7 mg/dL (1.6-2.3); POTASSIUM 4.1 mmol/l (3.5-5.1)
[2021-12-06 06:15] LABS: URINE BILIRUBIN - DIPSTICK NEGATIVE (NEGATIVE); URINE BLOOD DIPSTICK NEGATIVE (NEGATIVE); URINE COLOR YELLOW; URINE GLUCOSE - DIPSTICK NEGATIVE (NEGATIVE); URINE KETONE NEGATIVE (NEGATIVE); URINE LEUK ESTERASE NEGATIVE (NEGATIVE); URINE PH 5.5 (4.5-8.0); URINE PROTEIN - DIPSTICK NEGATIVE (NEG-TRACE); URINE UROBILINOGEN - DIPSTICK 0.2 E.U./dL (0.2)
[2021-12-06 06:23] LABS: URINE NITRITE - DIPSTICK NEGATIVE (Negative)
--- NOTE | 2021-12-06 06:24 | NUR ---
Called and spoke with pt granddaughter Kristen to inform her that the pt was being transferred to ICU for closer observation of blood pressure.
--- NOTE | 2021-12-06 06:31 | NUR ---
Patient resting quietly at this time, no c/o pain or discomfort, no s/s of distress noted, respirations even and unlabored, awaiting transfer to ICU for closer observation.
--- NOTE | 2021-12-06 07:42 | NUR ---
PT TRANSFERRED TO UNIT OF 0650 AT THIS MORNING. TRANSFUSSING LEVOPHED AT 14MCG/MIN AND IV FLUIDS AT 125ML/HR. PTS VITAL SIGNS WITHIN NORMAL LIMITS. PT ALERT AND ORIENTED X4. DOES NOT LOOK TO BE IN ANY DISTRESS. PT REPORTS PAIN 8/10 ON HER LEFT SIDE. PT ABLE MOVE ALL EXTREMITIES. SITTING UP IN BED HAVING HER BREAKFAST. PT BEING CLOSELY MONITORED.
--- NOTE | 2021-12-06 10:07 | NUR ---
AT BEDSIDE. ORDERED ATROPINE FOR BRADYCARDIA. PT TOLERATED INITIAL DOSE. HR INCREASED FROM MID 40'S TO MID 70'S. PT REMAINS ON LEVOPHED AT THIS TIME. TITRATING PER ORDERED PERAMETERS.
[2021-12-06 11:06] LABS: TSH, 3RD GENERATION 0.42 uIU/mL (0.47 - 4.68)
--- NOTE | 2021-12-06 12:00 | NUR ---
SHIFT REASSESSMENT - NO CHANGES IN PT STATUS AT THIS TIME. PTS REMAINS ON LEVOPHED AND IV FLUIDS HAVE FROM 125ML/HR TI 80ML/HR. PT BEING CLOSELY MONITORED.
[2021-12-06] MEDS ORDERED: HYDRALAZINE HYD25 MG PO (12:59)
[2021-12-06] MEDS ORDERED: DITROPAN XL5 MG PO (13:00)
[2021-12-06] MEDS ORDERED: D32000 UNIT PO (13:02)
[2021-12-06] MEDS ORDERED: METOPROL TAR25 MG PO (13:03)
[2021-12-06] MEDS ORDERED: COZAAR100 MG PO (13:04)
[2021-12-06] MEDS ORDERED: SENNA-TABS8.6 MG PO (13:04)
[2021-12-06] MEDS ORDERED: NITROSTAT0.4 MG SL (13:05)
[2021-12-06] MEDS ORDERED: ALENDRONATE SOD70 MG PO (13:06)
[2021-12-06] MEDS ORDERED: JANUVIA50 MG PO (13:07)
[2021-12-06] MEDS ORDERED: ASPIRIN81 MG PO (13:08)
--- NOTE | 2021-12-06 14:00 | NUR ---
PT REASSESSED - NYSTATIN POWDER APPLIED TO GROIN AND ABDOMANAL FOLDS. PT REMAINS ON LEVOPHED. ATTEMPTED TO TITRATE OFF, BUT UNSUCCESSFUL. WILL CONTINUE TO MONITOR CLOSELY.
--- NOTE | 2021-12-06 16:00 | NUR ---
PT REASSESSMENT - PT BRADYCARDIC IN THE MID 40 TO LOW 50'S. PT REMAINS ON LEVOPHED DRIP. CONTACTED DR. MUNIZ REGARDING PTS CURRENT STATUS.
--- NOTE | 2021-12-06 19:52 | NUR ---
RECEIVED REPORT FROM Paulette CARRIZALES RN. PT RESTING IN BED WITH EYES OPEN, WATCHING TV, REGULAR CHEST RISE AND FALL, NO SIGN OF ACUTE DISTRESS. LAST SET OF VITALS TAKEN AT 1900 STABLE, WNL. SEE VS FLOWSHEET. IVF INFUSING AT PRESCRIBED RATE, IV SITE WITHOUT REDNESS, EDEMA, OR STREAKING, DRESSING CDI. PT IS ON ROOM AIR STAT @100%. BED IS AT IT LOWEST, LOCKED POSITION WITH SIDE RAILS UP X2. PATIENTS BELONGINGS AT BEDSIDE. CALL LIGHT IN REACH.
--- NOTE | 2021-12-06 23:50 | NUR ---
RESOURCE ANALYSTLUCIA IN PT ROOM TO DRAW BLOODFOR TROPONINS.
[2021-12-07] VITALS (78 sets, daily range): BP systolic 82–142; BP diastolic 35–69
--- NOTE | 2021-12-07 00:15 | NUR ---
PT RESTING WITH EYES CLOSED; IN NO APPARENT DISTRESS; HANNAH CATHETER IS SECURE AND FLOWING TO GRAVITY; SB WITH PACs ON HEART MONITOR; IV IS INTACT AND PATENT; CALL LIGHT WITHIN REACH.
[2021-12-07 05:11] LABS: HEMATOCRIT 25.7 % (37.0-47.0); HEMOGLOBIN 7.7 g/dl (12.0-16.0); MEAN CELL VOLUME 92.8 fL CALC (80.0-100.0); MEAN CORPUSCULAR HGB 27.8 pG CALC (26.0-32.0); RED BLOOD COUNT 2.77 mill/uL (4.20-5.60); RED CELL DISTRI WIDTH 15.7 % (11.5-15.5)
[2021-12-07 05:30] LABS: MAGNESIUM 1.5 mg/dL (1.6-2.3); POTASSIUM 3.8 mmol/l (3.5-5.1)
[2021-12-07 05:32] LABS: CREATININE 2.1 mg/dL (0.5-1.0)
--- NOTE | 2021-12-07 05:42 | NUR ---
NOTIFIED DR. MUNIZ REG. H.H LEVEL OF 7.7 AND MAG LEVEL OF 1.5 . AWAITING FOR HIS CALL.
--- NOTE | 2021-12-07 05:43 | NUR ---
PATIENT SLEEPING AT THIS TIME. SHE REMAIN ON LEVOPHED AT 5 MCG/MIN TITRATING TO KEEP SBP AT 100. CONTINUE TO MONITOR.
--- NOTE | 2021-12-07 08:00 | NUR ---
PT ALERT ORIENTED AND FOLLOWING COMMANDS. PT CURRENTLY ON LEVOPHED DRIP, AND NORMAL SALINE GOING AT 80ML/HR. PT CURRENTLY BRADYCARDIC. FAMILY VISITING AT BEDSIDE. PT DENIES REPORTS PAIN 03/04. AGREED TO TAKE TYLONEL AT THIS TIME. WILL CONTINUE TO MONITOR.
--- NOTE | 2021-12-07 10:00 | NUR ---
PT STARTED ON EPINEPHRINE DRIP, AND WEANED OFF OF LEVOPHED DRIP. PT BEING CLOSELY MONITORED.
--- NOTE | 2021-12-07 12:45 | NUR ---
PT TACHYCARDIC AND HYPOTENSIVE. STARTED PT BACK ON LEVOPHED DRIP WITH THE EPINEPHRINE DRIP. PHYSICIAN INFORMED.
--- NOTE | 2021-12-07 13:30 | NUR ---
PICC LINE PLACED. CHEST XRAY COMPLETED.
== END 2021-12-07 15:00 | disposition short-term general hospital (02) | DRG 314 ==
LOC: ED 16:07 → ED-I 19:05 → ED 19:19 → MS2 19:20 → ICU 12-06 02:57
PROVIDERS: Nurse Practitioner; ADMIT Hospitalist; ATTEND Hospitalist
PROC: 0T9B70Z Drainage of Bladder with Drainage Device, Via Natural or Artificial Opening (ICD-10-PCS; principal; 2021-12-06)
PROC: 02HV33Z Insertion of Infusion Device into Superior Vena Cava, Percutaneous Approach (ICD-10-PCS; 2021-12-07)
DX: I95.9 Hypotension, unspecified (principal); N17.0 Acute kidney failure with tubular necrosis; I13.0 Hypertensive heart and chronic kidney disease with heart failure and stage 1 through stage 4 chronic kidney disease, or unspecified chronic kidney disease; N18.4 Chronic kidney disease, stage 4 (severe); E87.2 Acidosis; E87.0 Hyperosmolality and hypernatremia; E86.9 Volume depletion, unspecified; D63.1 Anemia in chronic kidney disease; E83.42 Hypomagnesemia; R00.1 Bradycardia, unspecified; E11.22 Type 2 diabetes mellitus with diabetic chronic kidney disease; I50.9 Heart failure, unspecified; E11.40 Type 2 diabetes mellitus with diabetic neuropathy, unspecified; E86.0 Dehydration; I25.10 Atherosclerotic heart disease of native coronary artery without angina pectoris; Z95.1 Presence of aortocoronary bypass graft; Z86.718 Personal history of other venous thrombosis and embolism; Z98.84 Bariatric surgery status; Z95.5 Presence of coronary angioplasty implant and graft; Z87.11 Personal history of peptic ulcer disease; Z20.822 Contact with and (suspected) exposure to COVID-19
CPT/HCPCS: J3475

== ENCOUNTER 2022-03-02 10:07 | Inpatient (IN) | payer MEDICARE ==
[2022-03-02] VITALS (44 sets, daily range): BP systolic 53–125; BP diastolic 24–85
[~2022-03-02] VITALS: Ht 144.8 cm; Wt 73.9 kg
[~2022-03-02 10:07] MED LIST changes: +ALENDRONATE SOD70 MG PO; +ASPIRIN81 MG PO; +D32000 UNIT PO; +DITROPAN XL5 MG PO; +METOPROL TAR25 MG PO; +SENNA-TABS8.6 MG PO
[2022-03-02 11:07] LABS: HEMATOCRIT 38.3 % (37.0-47.0); HEMOGLOBIN 11.7 g/dl (12.0-16.0); IMMATURE GRANULOCYTES 0.5 % (0.0-5.0); MEAN CELL VOLUME 90.8 fL CALC (80.0-100.0); MEAN CORPUSCULAR HGB 27.7 pG CALC (26.0-32.0); MEAN CORPUSCULAR HGB CONC 30.5 g/dL CAL (32.0-36.0); RED BLOOD COUNT 4.22 mill/uL (4.20-5.60); RED CELL DISTRI WIDTH 17.1 % (11.5-15.5)
[2022-03-02 13:20] LABS: URINE BLOOD DIPSTICK NEGATIVE (NEGATIVE); URINE COLOR YELLOW; URINE GLUCOSE - DIPSTICK NEGATIVE (NEGATIVE); URINE KETONE TRACE mg/dL (NEGATIVE); URINE LEUK ESTERASE NEGATIVE (NEGATIVE); URINE PROTEIN - DIPSTICK NEGATIVE (NEG-TRACE); URINE UROBILINOGEN - DIPSTICK 0.2 E.U./dL (0.2)
[2022-03-02 13:27] LABS: URINE BILIRUBIN - DIPSTICK NEGATIVE (NEGATIVE); URINE NITRITE - DIPSTICK NEGATIVE (Negative)
[2022-03-02 13:55] LABS: ALBUMIN 2.8 g/dL (3.2-5.0); CREATININE 2.4 mg/dL (0.5-1.0); TOTAL PROTEIN 6.1 g/dL (6.3-8.2)
[2022-03-02 13:56] LABS: BILIRUBIN, TOTAL 0.7 mg/dL (0.0-1.4); MAGNESIUM 3.2 mg/dL (1.6-2.3); POTASSIUM 5.2 mmol/l (3.5-5.1)
[2022-03-02 16:43] LABS: ACT PARTIAL THROMBO TIME 20.5 SECONDS (20.0-32.5); INTERNATIONAL NORMALIZED RATIO 1.1 RATIO (0.7-1.3)
[2022-03-02 21:46] LABS: HEMOGLOBIN 9.9 g/dl (12.0-16.0); IMMATURE GRANULOCYTES 0.6 % (0.0-5.0); MEAN CORPUSCULAR HGB 28.4 pG CALC (26.0-32.0); MEAN CORPUSCULAR HGB CONC 30.8 g/dL CAL (32.0-36.0); NEUT# 5.87 thou/uL (2.00-7.15); RED BLOOD COUNT 3.49 mill/uL (4.20-5.60); RED CELL DISTRI WIDTH 16.9 % (11.5-15.5)
[2022-03-02 21:47] LABS: HEMATOCRIT 32.1 % (37.0-47.0)
[2022-03-02 22:07] LABS: ACT PARTIAL THROMBO TIME 27.4 SECONDS (20.0-32.5); INTERNATIONAL NORMALIZED RATIO 1.1 RATIO (0.7-1.3); PROTHROMBIN TIME 11.5 SECONDS (9.0-12.5)
[2022-03-03] VITALS (110 sets, daily range): BP systolic 74–143; BP diastolic 26–88
[2022-03-03 04:14] LABS: HEMATOCRIT 31.2 % (37.0-47.0); HEMOGLOBIN 9.5 g/dl (12.0-16.0); MEAN CELL VOLUME 92.6 fL CALC (80.0-100.0); MEAN CORPUSCULAR HGB 28.2 pG CALC (26.0-32.0); MEAN CORPUSCULAR HGB CONC 30.4 g/dL CAL (32.0-36.0); RED BLOOD COUNT 3.37 mill/uL (4.20-5.60); RED CELL DISTRI WIDTH 17.1 % (11.5-15.5)
[2022-03-03 04:39] LABS: CREATININE 1.8 mg/dL (0.5-1.0); MAGNESIUM 2.7 mg/dL (1.6-2.3); POTASSIUM 4.3 mmol/l (3.5-5.1)
[2022-03-03 08:19] LABS: HEMATOCRIT 31.5 % (37.0-47.0); IMMATURE GRANULOCYTES 0.5 % (0.0-5.0); MEAN CELL VOLUME 88.2 fL CALC (80.0-100.0); MEAN CORPUSCULAR HGB CONC 31.7 g/dL CAL (32.0-36.0); NEUT# 4.33 thou/uL (2.00-7.15); RED BLOOD COUNT 3.57 mill/uL (4.20-5.60); RED CELL DISTRI WIDTH 16.8 % (11.5-15.5)
[2022-03-03] MEDS ORDERED: ATORVASTATIN CA20 MG PO (10:38)
[2022-03-03] MEDS ORDERED: PROTONIX40 M2 PO (10:39)
[2022-03-03] MEDS ORDERED: ERYTHROMYCIN O3.5 GM (10:41)
[2022-03-04] VITALS (44 sets, daily range): BP systolic 92–149; BP diastolic 26–75
[2022-03-04 06:55] LABS: HEMATOCRIT 26.3 % (37.0-47.0); HEMOGLOBIN 8.1 g/dl (12.0-16.0); IMMATURE GRANULOCYTES 0.5 % (0.0-5.0); MEAN CELL VOLUME 91.3 fL CALC (80.0-100.0); MEAN CORPUSCULAR HGB 28.1 pG CALC (26.0-32.0); MEAN CORPUSCULAR HGB CONC 30.8 g/dL CAL (32.0-36.0); NEUT# 3.81 thou/uL (2.00-7.15); RED BLOOD COUNT 2.88 mill/uL (4.20-5.60); RED CELL DISTRI WIDTH 16.9 % (11.5-15.5)
[2022-03-04 07:15] LABS: CREATININE 1.5 mg/dL (0.5-1.0); MAGNESIUM 2.1 mg/dL (1.6-2.3); POTASSIUM 3.6 mmol/l (3.5-5.1)
[2022-03-04 07:18] LABS: ALBUMIN 1.6 g/dL (3.2-5.0); BILIRUBIN, TOTAL 0.3 mg/dL (0.0-1.4)
[2022-03-05] VITALS (28 sets, daily range): BP systolic 86–137; BP diastolic 28–77
[2022-03-05 05:53] LABS: HEMATOCRIT 25.9 % (37.0-47.0); MEAN CELL VOLUME 91.8 fL CALC (80.0-100.0); MEAN CORPUSCULAR HGB 28.4 pG CALC (26.0-32.0); MEAN CORPUSCULAR HGB CONC 30.9 g/dL CAL (32.0-36.0); RED BLOOD COUNT 2.82 mill/uL (4.20-5.60); RED CELL DISTRI WIDTH 16.7 % (11.5-15.5)
[2022-03-05 06:09] LABS: ALBUMIN 1.5 g/dL (3.2-5.0); BILIRUBIN, TOTAL 0.3 mg/dL (0.0-1.4); CREATININE 1.4 mg/dL (0.5-1.0); MAGNESIUM 2.2 mg/dL (1.6-2.3); POTASSIUM 3.7 mmol/l (3.5-5.1); TOTAL PROTEIN 3.9 g/dL (6.3-8.2)
[2022-03-06] VITALS (52 sets, daily range): BP systolic 78–153; BP diastolic 21–101
[2022-03-06 03:32] LABS: HEMATOCRIT 24.5 % (37.0-47.0); HEMOGLOBIN 7.8 g/dl (12.0-16.0); MEAN CELL VOLUME 88.8 fL CALC (80.0-100.0); MEAN CORPUSCULAR HGB 28.3 pG CALC (26.0-32.0); MEAN CORPUSCULAR HGB CONC 31.8 g/dL CAL (32.0-36.0); RED BLOOD COUNT 2.76 mill/uL (4.20-5.60); RED CELL DISTRI WIDTH 16.6 % (11.5-15.5)
[2022-03-06 03:46] LABS: ALBUMIN 1.5 g/dL (3.2-5.0); BILIRUBIN, TOTAL 0.2 mg/dL (0.0-1.4); CREATININE 1.3 mg/dL (0.5-1.0); MAGNESIUM 1.9 mg/dL (1.6-2.3); POTASSIUM 3.7 mmol/l (3.5-5.1); TOTAL PROTEIN 3.8 g/dL (6.3-8.2)
[2022-03-07] VITALS (60 sets, daily range): BP systolic 90–165; BP diastolic 38–95
[2022-03-07 04:11] LABS: HEMATOCRIT 27.9 % (37.0-47.0); HEMOGLOBIN 9.2 g/dl (12.0-16.0); MEAN CELL VOLUME 87.2 fL CALC (80.0-100.0); MEAN CORPUSCULAR HGB 28.8 pG CALC (26.0-32.0); RED BLOOD COUNT 3.2 mill/uL (4.20-5.60); RED CELL DISTRI WIDTH 15.7 % (11.5-15.5)
[2022-03-07 04:34] LABS: ALBUMIN 1.5 g/dL (3.2-5.0); BILIRUBIN, TOTAL 0.2 mg/dL (0.0-1.4); CREATININE 1.3 mg/dL (0.5-1.0); MAGNESIUM 1.8 mg/dL (1.6-2.3); POTASSIUM 3.3 mmol/l (3.5-5.1); TOTAL PROTEIN 3.8 g/dL (6.3-8.2)
[2022-03-08] VITALS (10 sets, daily range): BP systolic 111–146; BP diastolic 47–82
[2022-03-09] VITALS (7 sets, daily range): BP systolic 106–142; BP diastolic 40–59
[2022-03-09 05:25] LABS: HEMATOCRIT 27.9 % (37.0-47.0); IMMATURE GRANULOCYTES 0.4 % (0.0-5.0); MEAN CELL VOLUME 88.6 fL CALC (80.0-100.0); MEAN CORPUSCULAR HGB 28.6 pG CALC (26.0-32.0); MEAN CORPUSCULAR HGB CONC 32.3 g/dL CAL (32.0-36.0); NEUT# 3.21 thou/uL (2.00-7.15); RED BLOOD COUNT 3.15 mill/uL (4.20-5.60); RED CELL DISTRI WIDTH 16.4 % (11.5-15.5)
[2022-03-09 05:43] LABS: CREATININE 1.3 mg/dL (0.5-1.0); POTASSIUM 3.7 mmol/l (3.5-5.1)
[2022-03-10 03:44] VITALS: BP 125/45
[2022-03-10 04:56] LABS: MEAN CELL VOLUME 88.1 fL CALC (80.0-100.0); MEAN CORPUSCULAR HGB 28.3 pG CALC (26.0-32.0); MEAN CORPUSCULAR HGB CONC 32.1 g/dL CAL (32.0-36.0); RED BLOOD COUNT 3.18 mill/uL (4.20-5.60); RED CELL DISTRI WIDTH 16.5 % (11.5-15.5)
[2022-03-10 05:12] LABS: CREATININE 1.3 mg/dL (0.5-1.0); MAGNESIUM 1.4 mg/dL (1.6-2.3); POTASSIUM 3.5 mmol/l (3.5-5.1)
[2022-03-10 06:36] VITALS: BP 121/50
[2022-03-10 10:51] VITALS: BP 106/57
[2022-03-10 16:28] VITALS: BP 121/32
[2022-03-10 19:51] VITALS: BP 120/50
[2022-03-11 00:11] VITALS: BP 118/38
[2022-03-11 04:57] VITALS: BP 135/41
[2022-03-11 05:27] LABS: HEMATOCRIT 25.6 % (37.0-47.0); HEMOGLOBIN 8.5 g/dl (12.0-16.0); MEAN CELL VOLUME 87.7 fL CALC (80.0-100.0); MEAN CORPUSCULAR HGB 29.1 pG CALC (26.0-32.0); MEAN CORPUSCULAR HGB CONC 33.2 g/dL CAL (32.0-36.0); RED BLOOD COUNT 2.92 mill/uL (4.20-5.60); RED CELL DISTRI WIDTH 16.4 % (11.5-15.5)
[2022-03-11 05:39] LABS: ALBUMIN 1.4 g/dL (3.2-5.0); CREATININE 1.3 mg/dL (0.5-1.0); POTASSIUM 3.8 mmol/l (3.5-5.1); TOTAL PROTEIN 3.5 g/dL (6.3-8.2)
[2022-03-11 05:46] LABS: BILIRUBIN, TOTAL 0.1 mg/dL (0.0-1.4); MAGNESIUM 2.1 mg/dL (1.6-2.3)
[2022-03-11 07:23] VITALS: BP 112/40
[2022-03-11 10:47] VITALS: BP 136/55
[2022-03-11 15:44] VITALS: BP 137/58
[2022-03-11 19:30] VITALS: BP 132/61
[2022-03-12] VITALS (9 sets, daily range): BP systolic 101–121; BP diastolic 34–55
[2022-03-12 06:25] LABS: CREATININE 1.2 mg/dL (0.5-1.0); MAGNESIUM 1.7 mg/dL (1.6-2.3); POTASSIUM 3.2 mmol/l (3.5-5.1)
[2022-03-12 06:27] LABS: HEMATOCRIT 25.1 % (37.0-47.0); HEMOGLOBIN 8.2 g/dl (12.0-16.0); MEAN CELL VOLUME 88.1 fL CALC (80.0-100.0); MEAN CORPUSCULAR HGB 28.8 pG CALC (26.0-32.0); MEAN CORPUSCULAR HGB CONC 32.7 g/dL CAL (32.0-36.0); RED BLOOD COUNT 2.85 mill/uL (4.20-5.60); RED CELL DISTRI WIDTH 16.6 % (11.5-15.5)
[2022-03-13] VITALS (9 sets, daily range): BP systolic 100–148; BP diastolic 33–58
[2022-03-14] VITALS (9 sets, daily range): BP systolic 95–123; BP diastolic 32–55
[2022-03-15] VITALS (8 sets, daily range): BP systolic 107–152; BP diastolic 30–58
[2022-03-15 07:14] LABS: HEMOGLOBIN 7.8 g/dl (12.0-16.0); MEAN CELL VOLUME 88.6 fL CALC (80.0-100.0); MEAN CORPUSCULAR HGB 28.8 pG CALC (26.0-32.0); MEAN CORPUSCULAR HGB CONC 32.5 g/dL CAL (32.0-36.0); RED BLOOD COUNT 2.71 mill/uL (4.20-5.60); RED CELL DISTRI WIDTH 17.1 % (11.5-15.5)
[2022-03-15 07:18] LABS: ALBUMIN 1.4 g/dL (3.2-5.0); CREATININE 1.2 mg/dL (0.5-1.0); MAGNESIUM 1.5 mg/dL (1.6-2.3); POTASSIUM 3.5 mmol/l (3.5-5.1); TOTAL PROTEIN 3.7 g/dL (6.3-8.2)
[2022-03-15 07:19] LABS: BILIRUBIN, TOTAL 0.2 mg/dL (0.0-1.4)
[2022-03-15 14:35] LABS: URINE BILIRUBIN - DIPSTICK NEGATIVE (NEGATIVE); URINE BLOOD DIPSTICK NEGATIVE (NEGATIVE); URINE CLARITY CLEAR; URINE COLOR YELLOW; URINE GLUCOSE - DIPSTICK NEGATIVE (NEGATIVE); URINE KETONE NEGATIVE (NEGATIVE); URINE LEUK ESTERASE SMALL (Negative); URINE NITRITE - DIPSTICK NEGATIVE (Negative); URINE PH 5.5 (4.5-8.0); URINE PROTEIN - DIPSTICK NEGATIVE (NEG-TRACE); URINE SPECIFIC GRAVITY 1.015; URINE UROBILINOGEN - DIPSTICK 0.2 E.U./dL (0.2)
[2022-03-15 14:46] LABS: URINE SQUAMOUS EPITHELIAL CELL MODERATE EPI/hpf (0-FEW)
[2022-03-16 03:29] VITALS: BP 114/46
[2022-03-16 05:27] LABS: HEMATOCRIT 24.2 % (37.0-47.0); HEMOGLOBIN 8.1 g/dl (12.0-16.0); MEAN CELL VOLUME 87.1 fL CALC (80.0-100.0); MEAN CORPUSCULAR HGB 29.1 pG CALC (26.0-32.0); MEAN CORPUSCULAR HGB CONC 33.5 g/dL CAL (32.0-36.0); RED BLOOD COUNT 2.78 mill/uL (4.20-5.60); RED CELL DISTRI WIDTH 17.3 % (11.5-15.5)
[2022-03-16 05:30] LABS: CREATININE 1.2 mg/dL (0.5-1.0); MAGNESIUM 1.6 mg/dL (1.6-2.3); POTASSIUM 3.8 mmol/l (3.5-5.1)
[2022-03-16 06:48] VITALS: BP 127/54
[2022-03-16 11:06] VITALS: BP 138/53
[2022-03-16 15:31] VITALS: BP 138/56
[2022-03-16 19:45] VITALS: BP 136/50
[2022-03-17] VITALS: BP 130/64
[2022-03-17 05:54] LABS: ALBUMIN 1.5 g/dL (3.2-5.0); ALKALINE PHOSPHATASE 83 u/l (38-126); ANION GAP 6 (6-22 (CALC)); BUN 7 mg/dL (8-23); BUN/CREATININE RATIO 6 (12-20 (CALC)); C-REACTIVE PROTEIN < 0.5 mg/dL (0-0.9); CARBON DIOXIDE 18 mmol/l (22-30); CHLORIDE 118 mmol/l (95-108); CREATININE 1.2 mg/dL (0.5-1.0); GFR FOR AFR.AMER. 53 ML/MIN (>=60 (CALC)); GFR OTHER RACES 44 ML/MIN (>=60 (CALC)); POTASSIUM 3.9 mmol/l (3.5-5.1); SGOT/AST 21 u/l (9-36); SODIUM 138 mmol/l (137-146); TOTAL PROTEIN 3.7 g/dL (6.3-8.2)
[2022-03-17 06:11] LABS: BILIRUBIN, TOTAL 0.1 mg/dL (0.0-1.4)
[2022-03-17 06:17] VITALS: BP 139/67
[2022-03-17 06:44] VITALS: BP 139/68
[2022-03-17 07:07] LABS: HEMATOCRIT 22.8 % (37.0-47.0); HEMOGLOBIN 7.5 g/dl (12.0-16.0); IMMATURE GRANULOCYTES 0.7 % (0.0-5.0); MEAN CELL VOLUME 87.4 fL CALC (80.0-100.0); MEAN CORPUSCULAR HGB 28.7 pG CALC (26.0-32.0); MEAN CORPUSCULAR HGB CONC 32.9 g/dL CAL (32.0-36.0); NEUT# 4.95 thou/uL (2.00-7.15); RED BLOOD COUNT 2.61 mill/uL (4.20-5.60); RED CELL DISTRI WIDTH 17.3 % (11.5-15.5)
[2022-03-17 10:49] VITALS: BP 131/42
[2022-03-17 11:00] VITALS: BP 131/42
[2022-03-17] MEDS ORDERED: MEDDOSEPAK PO (12:46)
[2022-03-17] MEDS ORDERED: KEFLEX500 MG PO (12:46)
== END 2022-03-17 14:35 | DRG 311 ==
LOC: ED 10:07 → ED-I 17:30 → MS2 18:00 → ED 18:00 → ICU 20:11 → MS2 20:11 → ICU 21:30 → MS2 03-07 14:15
PROVIDERS: Family Medicine; Internal Medicine; ADMIT Internal Medicine; ATTEND Internal Medicine
PROC: 05HN33Z Insertion of Infusion Device into Left Internal Jugular Vein, Percutaneous Approach (ICD-10-PCS; principal; 2022-03-03)
PROC: 30243N1 Transfusion of Nonautologous Red Blood Cells into Central Vein, Percutaneous Approach (ICD-10-PCS; 2022-03-06)
DX: I24.8 Other forms of acute ischemic heart disease (principal); U07.1 COVID-19; E43 Unspecified severe protein-calorie malnutrition; N17.9 Acute kidney failure, unspecified; E87.2 Acidosis; A04.4 Other intestinal Escherichia coli infections; N39.0 Urinary tract infection, site not specified; I95.9 Hypotension, unspecified; E86.0 Dehydration; K43.2 Incisional hernia without obstruction or gangrene; I12.9 Hypertensive chronic kidney disease with stage 1 through stage 4 chronic kidney disease, or unspecified chronic kidney disease; E11.22 Type 2 diabetes mellitus with diabetic chronic kidney disease; N18.9 Chronic kidney disease, unspecified; I25.10 Atherosclerotic heart disease of native coronary artery without angina pectoris; D64.9 Anemia, unspecified; M15.9 Polyosteoarthritis, unspecified; E11.40 Type 2 diabetes mellitus with diabetic neuropathy, unspecified; E11.649 Type 2 diabetes mellitus with hypoglycemia without coma; B96.1 Klebsiella pneumoniae [K. pneumoniae] as the cause of diseases classified elsewhere; Z86.718 Personal history of other venous thrombosis and embolism; Z98.84 Bariatric surgery status; Z95.1 Presence of aortocoronary bypass graft; Z95.5 Presence of coronary angioplasty implant and graft; Z87.11 Personal history of peptic ulcer disease; Z68.28 Body mass index [BMI] 28.0-28.9, adult; Z79.84 Long term (current) use of oral hypoglycemic drugs
CPT/HCPCS: J1650; J3475; P9016; Q9967; S0164